=== PATIENT | male | born 1950 | race African-American/Black ===

== ENCOUNTER 2018-01-09 00:51 | Inpatient (IN) | payer MEDICARE, MEDICAID ==
[~2018-01-09] VITALS: Ht 167.6 cm; Wt 51.3 kg
[2018-01-09] VITALS (55 sets, daily range): BP systolic 95–150; BP diastolic 37–101
[2018-01-09] MEDS ORDERED: VANCOMYCIN 1 G PREMIX 200 ML IV ONE (01:30)
[2018-01-09] MEDS ORDERED: SODIUM CHLORIDE 0.9% 1000ML BAG (SEPSIS BOLUS) IV ONE (01:30)
[2018-01-09] MEDS ORDERED: PIPERACILLIN/TAZ 3.375G PREMIX 50 ML IV ONE (01:30)
[2018-01-09 02:17] LABS: BG BASE EXCESS 5.6 mmol/L (-2.0-2.0); BG CARBOXYHEMOGLOBIN 0.3 % (0.5-1.5); BG DEOXYHEMOGLOBIN 6.4 % (0.0-5.0); BG FRACTION INSPIRED OXYGEN 100; BG METHEMOGLOBIN 0.6 % (0.0-1.5); BG OXYGEN SATURATION 93.5 % (92.0-98.5); BG OXYHEMOGLOBIN 92.7 % (94.0-97.0); BG PCO2 36.2 mmHg (35.0-45.0); BG PH 7.521 (7.350-7.450); BG PO2 69.9 mmHg (75.0-100.0); BG SAMPLE SITE RIGHT RADIAL; BG TOTAL HEMOGLOBIN 5.6 g/dL (12.0-18.0); BG VENT MODE MASK - NRB
[2018-01-09 02:32] LABS: BASOPHILS % 0.2 % (0.0-2.0); EOSINOPHILS % 0.1 % (0.0-5.0); LYMPHOCYTES % 7.8 % (20.0-50.0); MEAN CORPUSCULAR HEMOGLOBIN 31.5 pg (28.0-32.0); MEAN CORPUSCULAR VOLUME 95.9 fL (80.0-94.0); MEAN PLATELET VOLUME 7.7 fl (7.4-10.4); NEUTROPHILS % 85.9 % (40.0-76.0); PLATELET 450 x1000/uL (130-400); RED BLOOD CELL COUNT 1.67 mill/uL (4.7-6.1); RED CELL DISTRIBUTION WIDTH 15.9 % (11.6-14.6)
[2018-01-09 02:35] LABS: INR 1.3; PROTHROMBIN TIME 12.8 sec (9.1-11.1)
[2018-01-09 02:36] LABS: CHLORIDE 102 mEq/L (98-107)
[2018-01-09 02:39] LABS: HEMOGLOBIN. 5.3 g/dL (14.0-18.0)
[2018-01-09 04:09] LABS: CLARITY URINE CLEAR (CLEAR); COLOR URINE DARK YELLOW (YELLOW); KETONES URINE NEGATIVE (NEGATIVE); LEUKOCYTE ESTERASE URINE 1+ (NEGATIVE); NITRITE URINE NEGATIVE (NEGATIVE); OCCULT BLOOD URINE 2+ (NEGATIVE); PROTEIN URINE 1+ (NEGATIVE); SPECIFIC GRAVITY URINE 1.016 (1.005-1.030)
[2018-01-09] MEDS ORDERED: SODIUM CHLORIDE 0.9% 1,000 ML IV SCH (05:26)
[2018-01-09] MEDS ORDERED: ETOMIDATE 2MG/ML 10ML VIAL IV ONE ×2 (06:51→07:00)
[2018-01-09] MEDS ORDERED: NORMAL SALINE 0.9% 10 ML SYR ONE (06:51)
[2018-01-09] MEDS ORDERED: SUCCINYLCHOLINE CHLORIDE 200MG/10ML IV ONE ×2 (06:51→07:00)
[2018-01-09] MEDS ORDERED: PROPOFOL 10MG/ML 100ML 100 ML IV ONE (07:00)
[2018-01-09] MEDS ORDERED: FENTANYL CITRATE/PF 500 MCG in SODIUM CHLORIDE 0.9% 40 ML IV STA (07:38)
[2018-01-09] MEDS ORDERED: NOREPINEPHRINE 4 MG in DEXT 5% WATER 246 ML IV ONE (07:45)
[2018-01-09] MEDS ORDERED: NOREPINEPHRINE 4 MG in DEXT 5% WATER 246 ML IV PRN (07:45)
[2018-01-09 08:11] LABS: BG BASE EXCESS 4.1 mmol/L (-2.0-2.0); BG CARBOXYHEMOGLOBIN 0.1 % (0.5-1.5); BG DEOXYHEMOGLOBIN 1.4 % (0.0-5.0); BG METHEMOGLOBIN 0.1 % (0.0-1.5); BG OXYGEN SATURATION 98.6 % (92.0-98.5); BG OXYHEMOGLOBIN 98.4 % (94.0-97.0); BG PCO2 38.4 mmHg (35.0-45.0); BG PH 7.481 (7.350-7.450); BG PO2 141.6 mmHg (75.0-100.0); BG SAMPLE SITE RIGHT BRACHIAL; BG TIDAL VOLUME(mL) 450 mL; BG TOTAL HEMOGLOBIN 5.8 g/dL (12.0-18.0); BG VENT MODE VENT - A/C; BG VENT RATE 14 set
[2018-01-09] MEDS: FENTANYL CITRATE/PF 500 MCG in SODIUM CHLORIDE 0.9% 40 ML IV PRN ×4 (08:15→18:55)
[2018-01-09 08:52] LABS: TOTAL IRON BINDING CAPACITY 124 ug/dL (250-450)
[2018-01-09] MEDS ORDERED: ONDANSETRON HCL 4MG/2ML INJ IV PRN (09:15)
[2018-01-09] MEDS ORDERED: DIPHENHYDRAMINE 50MG/ML VIAL IV PRN (09:15)
[2018-01-09] MEDS ORDERED: IPRATROPIUM/ALBUTEROL 0.5-3(2.5)MG/3ML NEB INH PRN (09:15)
[2018-01-09] MEDS ORDERED: LIDOCAINE HCL 1% 10 MG/ML 10ML VIAL ONE (09:29)
[2018-01-09] MEDS ORDERED: IPRATROPIUM/ALBUTEROL 0.5-3(2.5)MG/3ML NEB HHN PRN (09:45)
[2018-01-09] MEDS: SODIUM CHLORIDE 0.9% 1,000 ML IV SCH ×2 (10:45→18:54)
[2018-01-09] MEDS: PIPERACILLIN/TAZ 3.375G PREMIX 50 ML IV SCH ×3 (11:09→22:19)
[2018-01-09] MEDS: PANTOPRAZOLE SODIUM 40 MG/VIAL IV SCH (11:14)
[2018-01-09] MEDS: POTASSIUM CHLORIDE 20MEQ/PACKET PEG NR (11:16)
[2018-01-09] MEDS ORDERED: IPRATROPIUM/ALBUTEROL 0.5-3(2.5)MG/3ML NEB HHN SCH (12:00)
[2018-01-09 12:18] LABS: HEMATOCRIT 23.2 % (42.0-52.0)
[2018-01-09] MEDS: ACETYLCYSTEINE 100MG/ML 10% VIAL 4ML INH SCH (13:05)
[2018-01-09] MEDS: IPRATROPIUM/ALBUTEROL 0.5-3(2.5)MG/3ML NEB HHN SCH ×3 (13:05→21:00)
[2018-01-09] MEDS ORDERED: VANCOMYCIN 750 MG PREMIX 150 ML IV SCH (14:00)
[2018-01-10] VITALS (87 sets, daily range): BP systolic 85–134; BP diastolic 43–78
[2018-01-10] MEDS: FENTANYL CITRATE/PF 500 MCG in SODIUM CHLORIDE 0.9% 40 ML IV PRN ×4 (00:13→20:10)
[2018-01-10] MEDS: ACETYLCYSTEINE 100MG/ML 10% VIAL 4ML INH SCH ×4 (00:16→17:00)
[2018-01-10] MEDS: IPRATROPIUM/ALBUTEROL 0.5-3(2.5)MG/3ML NEB HHN SCH ×6 (00:17→20:56)
[2018-01-10] MEDS ORDERED: VANCOMYCIN 1 G PREMIX 200 ML IV SCH (02:00)
[2018-01-10] MEDS: PIPERACILLIN/TAZ 3.375G PREMIX 50 ML IV SCH ×4 (04:56→22:30)
[2018-01-10 05:14] LABS: HEMATOCRIT. 23.2 % (42.0-52.0); HEMOGLOBIN. 7.9 g/dL (14.0-18.0); MEAN CORPUSCULAR HEMOGLOBIN 30.9 pg (28.0-32.0); MEAN CORPUSCULAR VOLUME 90.7 fL (80.0-94.0); MEAN PLATELET VOLUME 7.7 fl (7.4-10.4); PLATELET 400 x1000/uL (130-400); RED BLOOD CELL COUNT 2.56 mill/uL (4.7-6.1); RED CELL DISTRIBUTION WIDTH 17.3 % (11.6-14.6)
[2018-01-10] MEDS: SODIUM CHLORIDE 0.9% 1,000 ML IV SCH ×2 (05:15→15:25)
[2018-01-10 05:16] LABS: CHLORIDE 107 mEq/L (98-107)
[2018-01-10 07:08] LABS: NUCLEATED RED BLOOD CELLS 1 /100 WBC; PLATELET ESTIMATE INCREASED
[2018-01-10 07:53] LABS: BG BASE EXCESS 1.6 mmol/L (-2.0-2.0); BG CARBOXYHEMOGLOBIN 0.2 % (0.5-1.5); BG DEOXYHEMOGLOBIN 3.3 % (0.0-5.0); BG FRACTION INSPIRED OXYGEN 50; BG HCO3 ACT 25.2 mmol/L (22.0-26.0); BG METHEMOGLOBIN 0.3 % (0.0-1.5); BG OXYGEN SATURATION 96.7 % (92.0-98.5); BG OXYHEMOGLOBIN 96.2 % (94.0-97.0); BG PCO2 34.8 mmHg (35.0-45.0); BG PH 7.477 (7.350-7.450); BG PO2 85.9 mmHg (75.0-100.0); BG SAMPLE SITE LEFT RADIAL; BG TIDAL VOLUME(mL) 450 mL; BG TOTAL HEMOGLOBIN 7.8 g/dL (12.0-18.0); BG VENT MODE VENT - A/C; BG VENT RATE 14 set
[2018-01-10] MEDS: PANTOPRAZOLE SODIUM 40 MG/VIAL IV SCH (09:22)
[2018-01-10] MEDS: POTASSIUM CHLORIDE 20MEQ/PACKET PEG NR (10:23)
[2018-01-10] MEDS: FERROUS SULFATE 300MG/5ML UDC PO SCH ×2 (13:02→17:10)
[2018-01-10] MEDS: VANCOMYCIN 750 MG PREMIX 150 ML IV SCH (13:03)
[2018-01-11] VITALS (75 sets, daily range): BP systolic 100–149; BP diastolic 46–108
[2018-01-11] MEDS: IPRATROPIUM/ALBUTEROL 0.5-3(2.5)MG/3ML NEB HHN SCH ×6 (00:51→20:37)
[2018-01-11] MEDS: SODIUM CHLORIDE 0.9% 1,000 ML IV SCH (01:28)
[2018-01-11] MEDS: VANCOMYCIN 750 MG PREMIX 150 ML IV SCH ×2 (01:28→13:43)
[2018-01-11] MEDS: PIPERACILLIN/TAZ 3.375G PREMIX 50 ML IV SCH ×3 (05:02→16:45)
[2018-01-11] MEDS: FENTANYL CITRATE/PF 500 MCG in SODIUM CHLORIDE 0.9% 40 ML IV PRN (05:03)
[2018-01-11 05:54] LABS: HEMATOCRIT. 24.8 % (42.0-52.0); HEMOGLOBIN. 8.3 g/dL (14.0-18.0); MEAN CORPUSCULAR HEMOGLOBIN 30.6 pg (28.0-32.0); MEAN CORPUSCULAR VOLUME 91.1 fL (80.0-94.0); MEAN PLATELET VOLUME 7.4 fl (7.4-10.4); PLATELET 405 x1000/uL (130-400); RED BLOOD CELL COUNT 2.72 mill/uL (4.7-6.1); RED CELL DISTRIBUTION WIDTH 17.1 % (11.6-14.6)
[2018-01-11 06:03] LABS: CHLORIDE 110 mEq/L (98-107)
[2018-01-11] MEDS: ACETYLCYSTEINE 100MG/ML 10% VIAL 4ML INH SCH ×2 (08:32→17:05)
[2018-01-11] MEDS: PANTOPRAZOLE SODIUM 40 MG/VIAL IV SCH (08:33)
[2018-01-11] MEDS: FERROUS SULFATE 300MG/5ML UDC PO SCH ×3 (08:33→16:45)
[2018-01-11 08:58] LABS: BG BASE EXCESS -0.2 mmol/L (-2.0-2.0); BG CARBOXYHEMOGLOBIN 0.1 % (0.5-1.5); BG DEOXYHEMOGLOBIN 4.4 % (0.0-5.0); BG FRACTION INSPIRED OXYGEN 50; BG HCO3 ACT 23.2 mmol/L (22.0-26.0); BG METHEMOGLOBIN 0.1 % (0.0-1.5); BG OXYGEN SATURATION 95.6 % (92.0-98.5); BG OXYHEMOGLOBIN 95.4 % (94.0-97.0); BG PCO2 32.5 mmHg (35.0-45.0); BG PH 7.471 (7.350-7.450); BG PO2 81.2 mmHg (75.0-100.0); BG SAMPLE SITE RIGHT RADIAL; BG TIDAL VOLUME(mL) 450 mL; BG TOTAL HEMOGLOBIN 8.2 g/dL (12.0-18.0); BG VENT MODE VENT - A/C; BG VENT RATE 12 set
[2018-01-11] MEDS ORDERED: POTASSIUM CHLORIDE 20MEQ/PACKET PO NR (09:45)
[2018-01-11] MEDS ORDERED: SODIUM CHLORIDE 0.9% 1,000 ML IV SCH (09:45)
[2018-01-11] MEDS ORDERED: LORAZEPAM 2MG/ML CPJ IV PRN (10:00)
[2018-01-11 15:30] LABS: PLATELET ESTIMATE SLIGHTLY INCREASED
[2018-01-12] VITALS (56 sets, daily range): BP systolic 109–166; BP diastolic 17–88
[2018-01-12] MEDS: PIPERACILLIN/TAZ 3.375G PREMIX 50 ML IV SCH ×5 (00:18→23:56)
[2018-01-12] MEDS: ACETYLCYSTEINE 100MG/ML 10% VIAL 4ML INH SCH ×3 (00:27→16:36)
[2018-01-12] MEDS: IPRATROPIUM/ALBUTEROL 0.5-3(2.5)MG/3ML NEB HHN SCH ×6 (00:27→20:38)
[2018-01-12] MEDS: VANCOMYCIN 750 MG PREMIX 150 ML IV SCH (02:22)
[2018-01-12 06:46] LABS: HEMATOCRIT 23.9 % (42.0-52.0); HEMOGLOBIN 8.1 g/dL (14.0-18.0); MEAN CORPUSCULAR HEMOGLOBIN 31.1 pg (28.0-32.0); MEAN CORPUSCULAR VOLUME 91.7 fL (80.0-94.0); PLATELET 427 x1000/uL (130-400); RED BLOOD CELL COUNT 2.61 mill/uL (4.7-6.1); RED CELL DISTRIBUTION WIDTH 16.8 % (11.6-14.6)
[2018-01-12 07:16] LABS: CHLORIDE 113 mEq/L (98-107)
[2018-01-12 08:28] LABS: BG BASE EXCESS 2.4 mmol/L (-2.0-2.0); BG CARBOXYHEMOGLOBIN 0.3 % (0.5-1.5); BG DEOXYHEMOGLOBIN 1.7 % (0.0-5.0); BG FRACTION INSPIRED OXYGEN 50; BG METHEMOGLOBIN 0.4 % (0.0-1.5); BG OXYGEN SATURATION 98.3 % (92.0-98.5); BG OXYHEMOGLOBIN 97.6 % (94.0-97.0); BG PCO2 35.6 mmHg (35.0-45.0); BG PH 7.481 (7.350-7.450); BG PO2 118.3 mmHg (75.0-100.0); BG SAMPLE SITE RIGHT RADIAL; BG TIDAL VOLUME(mL) 450 mL; BG TOTAL HEMOGLOBIN 8.2 g/dL (12.0-18.0); BG VENT MODE VENT - A/C; BG VENT RATE 12 set
[2018-01-12] MEDS: FERROUS SULFATE 300MG/5ML UDC PO SCH ×3 (09:41→19:00)
[2018-01-12] MEDS: PANTOPRAZOLE SODIUM 40 MG/VIAL IV SCH (09:41)
[2018-01-12] MEDS ORDERED: LIDOCAINE HCL/EPINEPHRINE 1%-EPI 1:100,000 30 ML VIAL INFIL ONE (09:45)
[2018-01-12] MEDS ORDERED: POTASSIUM CHLORIDE 20MEQ/PACKET GT SCH (10:15)
[2018-01-12] MEDS ORDERED: LIDOCAINE HCL/EPINEPHRINE 1%-EPI 1:100,000 20 ML VIAL IJ SCH (10:30)
[2018-01-12] MEDS ORDERED: FUROSEMIDE 40MG/4ML VIAL IVP SCH (11:15)
[2018-01-12] MEDS: AMLODIPINE 2.5MG TABLET NG SCH (11:15)
[2018-01-12] MEDS ORDERED: VANCOMYCIN 1 G PREMIX 200 ML IV SCH (21:00)
[2018-01-12] MEDS ORDERED: POTASSIUM CHLORIDE 20MEQ TABLET SR PO SCH (21:00)
[2018-01-12] MEDS: ACETAMINOPHEN 650MG/20.3ML UDC PO PRN (22:07)
[2018-01-13] VITALS (52 sets, daily range): BP systolic 104–150; BP diastolic 58–88
[2018-01-13] MEDS: ACETYLCYSTEINE 100MG/ML 10% VIAL 4ML INH SCH ×3 (00:23→16:00)
[2018-01-13] MEDS: IPRATROPIUM/ALBUTEROL 0.5-3(2.5)MG/3ML NEB HHN SCH ×6 (00:24→20:30)
[2018-01-13] MEDS: PIPERACILLIN/TAZ 3.375G PREMIX 50 ML IV SCH ×2 (04:15→10:12)
[2018-01-13 06:14] LABS: HEMOGLOBIN. 8.2 g/dL (14.0-18.0); MEAN CORPUSCULAR HEMOGLOBIN 30.6 pg (28.0-32.0); MEAN CORPUSCULAR VOLUME 92.9 fL (80.0-94.0); MEAN PLATELET VOLUME 7.8 fl (7.4-10.4); PLATELET 450 x1000/uL (130-400); RED CELL DISTRIBUTION WIDTH 16.7 % (11.6-14.6)
[2018-01-13 06:23] LABS: CHLORIDE 115 mEq/L (98-107)
[2018-01-13] MEDS: FERROUS SULFATE 300MG/5ML UDC PO SCH ×3 (08:20→18:54)
[2018-01-13 08:36] LABS: BG BASE EXCESS -0.1 mmol/L (-2.0-2.0); BG CARBOXYHEMOGLOBIN 0.5 % (0.5-1.5); BG DEOXYHEMOGLOBIN 2.4 % (0.0-5.0); BG HCO3 ACT 22.9 mmol/L (22.0-26.0); BG METHEMOGLOBIN 0.3 % (0.0-1.5); BG OXYGEN SATURATION 97.6 % (92.0-98.5); BG OXYHEMOGLOBIN 96.8 % (94.0-97.0); BG PCO2 30.8 mmHg (35.0-45.0); BG PH 7.489 (7.350-7.450); BG PO2 99.6 mmHg (75.0-100.0); BG SAMPLE SITE RIGHT RADIAL; BG TIDAL VOLUME(mL) 450 mL; BG TOTAL HEMOGLOBIN 8.3 g/dL (12.0-18.0); BG VENT MODE VENT - A/C; BG VENT RATE 10 set
[2018-01-13] MEDS: PANTOPRAZOLE SODIUM 40 MG/VIAL IV SCH (09:00)
[2018-01-13] MEDS: AMLODIPINE 2.5MG TABLET NG SCH (10:12)
[2018-01-13] MEDS: GENTAMICIN 120MG PREMIX 100 ML IV SCH (12:00)
[2018-01-13] MEDS ORDERED: POTASSIUM CHLORIDE 20MEQ/PACKET GT NR (13:15)
[2018-01-13 16:19] LABS: PLATELET ESTIMATE INCREASED
[2018-01-14] VITALS (28 sets, daily range): BP systolic 109–169; BP diastolic 62–93
[2018-01-14] MEDS: GENTAMICIN 120MG PREMIX 100 ML IV SCH ×3 (00:39→23:59)
[2018-01-14] MEDS: IPRATROPIUM/ALBUTEROL 0.5-3(2.5)MG/3ML NEB HHN SCH ×5 (00:53→20:30)
[2018-01-14] MEDS: ACETYLCYSTEINE 100MG/ML 10% VIAL 4ML INH SCH ×2 (00:53→07:53)
[2018-01-14] MEDS: FERROUS SULFATE 300MG/5ML UDC PO SCH ×2 (08:20→13:20)
[2018-01-14] MEDS: PANTOPRAZOLE SODIUM 40 MG/VIAL IV SCH (09:00)
[2018-01-14] MEDS: AMLODIPINE 2.5MG TABLET NG SCH (09:13)
[2018-01-14 09:17] LABS: BG BASE EXCESS -0.3 mmol/L (-2.0-2.0); BG CARBOXYHEMOGLOBIN 0.4 % (0.5-1.5); BG DEOXYHEMOGLOBIN 2.5 % (0.0-5.0); BG FRACTION INSPIRED OXYGEN 40; BG HCO3 ACT 23.2 mmol/L (22.0-26.0); BG METHEMOGLOBIN 0.1 % (0.0-1.5); BG OXYGEN SATURATION 97.5 % (92.0-98.5); BG PCO2 33.2 mmHg (35.0-45.0); BG PH 7.463 (7.350-7.450); BG PO2 98.4 mmHg (75.0-100.0); BG SAMPLE SITE RIGHT RADIAL; BG TIDAL VOLUME(mL) 450 mL; BG TOTAL HEMOGLOBIN 8.2 g/dL (12.0-18.0); BG VENT MODE VENT - A/C; BG VENT RATE 10 set
[2018-01-15] VITALS (24 sets, daily range): BP systolic 124–174; BP diastolic 62–135
[2018-01-15] MEDS: ACETYLCYSTEINE 100MG/ML 10% VIAL 4ML INH SCH (00:31)
[2018-01-15] MEDS: IPRATROPIUM/ALBUTEROL 0.5-3(2.5)MG/3ML NEB HHN SCH ×6 (00:32→20:38)
[2018-01-15 06:26] LABS: HEMATOCRIT. 25.5 % (42.0-52.0); HEMOGLOBIN. 8.3 g/dL (14.0-18.0); INR 1.2; MEAN CORPUSCULAR HEMOGLOBIN 30.5 pg (28.0-32.0); MEAN CORPUSCULAR VOLUME 93.7 fL (80.0-94.0); MEAN PLATELET VOLUME 8.2 fl (7.4-10.4); PLATELET 511 x1000/uL (130-400); PROTHROMBIN TIME 11.6 sec (9.1-11.1); RED BLOOD CELL COUNT 2.72 mill/uL (4.7-6.1)
[2018-01-15 06:55] LABS: CHLORIDE 121 mEq/L (98-107)
[2018-01-15 08:02] LABS: BG CARBOXYHEMOGLOBIN 0.1 % (0.5-1.5); BG DEOXYHEMOGLOBIN 2.1 % (0.0-5.0); BG HCO3 ACT 23.2 mmol/L (22.0-26.0); BG METHEMOGLOBIN 0.4 % (0.0-1.5); BG OXYGEN SATURATION 97.9 % (92.0-98.5); BG OXYHEMOGLOBIN 97.4 % (94.0-97.0); BG PCO2 31.7 mmHg (35.0-45.0); BG PH 7.482 (7.350-7.450); BG PO2 105.8 mmHg (75.0-100.0); BG SAMPLE SITE RIGHT RADIAL; BG TIDAL VOLUME(mL) 450 mL; BG TOTAL HEMOGLOBIN 8.5 g/dL (12.0-18.0); BG VENT MODE VENT - A/C; BG VENT RATE 10 set
[2018-01-15] MEDS: FERROUS SULFATE 300MG/5ML UDC PO SCH ×3 (08:17→18:28)
[2018-01-15] MEDS: PANTOPRAZOLE SODIUM 40 MG/VIAL IV SCH (08:17)
[2018-01-15] MEDS: ACETAMINOPHEN 650MG/20.3ML UDC PO PRN (08:18)
[2018-01-15] MEDS: AMLODIPINE 2.5MG TABLET NG SCH (08:20)
[2018-01-15] MEDS: MORPHINE SULFATE 4 MG/ML CPJ (NOT FOR IM USE) IV PRN ×2 (10:00→15:31)
[2018-01-15] MEDS ORDERED: FERR325T6 GT (13:31)
[2018-01-15] MEDS ORDERED: HYDR25TA GT (13:31)
[2018-01-15] MEDS ORDERED: LOSA25TA12 GT (13:31)
[2018-01-15] MEDS ORDERED: AMLO10TA80 GT (13:31)
[2018-01-15] MEDS ORDERED: ASPI-1158 GT (13:31)
[2018-01-15] MEDS ORDERED: TAMS0.4C31 GT (13:31)
[2018-01-15] MEDS ORDERED: FINA1TAB18 GT (13:31)
[2018-01-15] MEDS ORDERED: ERGO2000 GT (13:31)
[2018-01-15] MEDS ORDERED: DOCU50LI25 GT (13:32)
[2018-01-15 14:04] LABS: PLATELET ESTIMATE INCREASED
[2018-01-16] VITALS (41 sets, daily range): BP systolic 114–158; BP diastolic 60–138
[2018-01-16] MEDS ORDERED: GENTAMICIN SULFATE 160 MG in SODIUM CHLORIDE 0.9% 100 ML IV SCH ×2
[2018-01-16] MEDS: IPRATROPIUM/ALBUTEROL 0.5-3(2.5)MG/3ML NEB HHN SCH ×6 (00:10→20:34)
[2018-01-16] MEDS: GENTAMICIN SULFATE 160 MG in SODIUM CHLORIDE 0.9% 100 ML IV SCH (00:12)
[2018-01-16 05:47] LABS: HEMATOCRIT. 27.2 % (42.0-52.0); HEMOGLOBIN. 8.6 g/dL (14.0-18.0); MEAN CORPUSCULAR HEMOGLOBIN 29.9 pg (28.0-32.0); MEAN PLATELET VOLUME 8.4 fl (7.4-10.4); PLATELET 506 x1000/uL (130-400); RED BLOOD CELL COUNT 2.89 mill/uL (4.7-6.1); RED CELL DISTRIBUTION WIDTH 16.7 % (11.6-14.6)
[2018-01-16] MEDS: MORPHINE SULFATE 4 MG/ML CPJ (NOT FOR IM USE) IV PRN ×3 (06:09→18:25)
[2018-01-16 06:31] LABS: CHLORIDE 121 mEq/L (98-107)
[2018-01-16 06:37] LABS: PHOSPHORUS 3.5 mg/dL (2.5-4.9)
[2018-01-16] MEDS: FERROUS SULFATE 300MG/5ML UDC PO SCH ×3 (08:39→17:28)
[2018-01-16] MEDS: AMLODIPINE 2.5MG TABLET NG SCH (08:39)
[2018-01-16] MEDS: PANTOPRAZOLE SODIUM 40 MG/VIAL IV SCH (08:39)
[2018-01-16 09:14] LABS: BG BASE EXCESS 0.2 mmol/L (-2.0-2.0); BG CARBOXYHEMOGLOBIN 0.1 % (0.5-1.5); BG DEOXYHEMOGLOBIN 0.9 % (0.0-5.0); BG FRACTION INSPIRED OXYGEN 40; BG HCO3 ACT 23.7 mmol/L (22.0-26.0); BG METHEMOGLOBIN 0.3 % (0.0-1.5); BG OXYGEN SATURATION 99.1 % (92.0-98.5); BG OXYHEMOGLOBIN 98.7 % (94.0-97.0); BG PCO2 33.6 mmHg (35.0-45.0); BG PH 7.466 (7.350-7.450); BG PO2 175.9 mmHg (75.0-100.0); BG PRESSURE SUPPORT 12; BG SAMPLE SITE RIGHT RADIAL; BG TIDAL VOLUME(mL) 450 mL; BG VENT MODE VENT - SIMV; BG VENT RATE 8 set
[2018-01-16 12:25] LABS: BG BASE EXCESS 0.1 mmol/L (-2.0-2.0); BG CARBOXYHEMOGLOBIN 0.3 % (0.5-1.5); BG DEOXYHEMOGLOBIN 5.7 % (0.0-5.0); BG FRACTION INSPIRED OXYGEN 40; BG HCO3 ACT 24.1 mmol/L (22.0-26.0); BG METHEMOGLOBIN 0.2 % (0.0-1.5); BG OXYGEN SATURATION 94.3 % (92.0-98.5); BG OXYHEMOGLOBIN 93.8 % (94.0-97.0); BG PCO2 36.6 mmHg (35.0-45.0); BG PH 7.436 (7.350-7.450); BG PRESSURE SUPPORT 8; BG SAMPLE SITE LEFT RADIAL; BG TOTAL HEMOGLOBIN 10.9 g/dL (12.0-18.0); BG VENT MODE VENT - CPAP
[2018-01-16] MEDS ORDERED: DILTIAZEM HCL 125 MG in DEXT 5% WATER 100 ML IV PRN (13:30)
[2018-01-16] MEDS ORDERED: DILTIAZEM HCL 5MG/ML 5ML VIAL IV ONE (13:30)
[2018-01-16 13:57] LABS: PLATELET ESTIMATE INCREASED
[2018-01-16] MEDS: DILTIAZEM HCL 60MG TABLET PO SCH ×2 (14:07→22:00)
[2018-01-16] MEDS ORDERED: VERAPAMIL HCL 2.5 MG/1 ML 2ML VIAL IV SCH ×2 (16:00→18:00)
[2018-01-16] MEDS ORDERED: AMIODARONE HCL 150 MG in DEXT 5% WATER 100 ML IV NR (18:30)
[2018-01-16] MEDS ORDERED: AMIODARONE HCL 900 MG in DEXT 5% WATER 482 ML IV PRN (18:30)
[2018-01-16] MEDS: CARVEDILOL 6.25 MG TABLET GT SCH (21:05)
[2018-01-17] VITALS (46 sets, daily range): BP systolic 121–183; BP diastolic 57–92
[2018-01-17] MEDS: IPRATROPIUM/ALBUTEROL 0.5-3(2.5)MG/3ML NEB HHN SCH ×6 (00:35→20:00)
[2018-01-17] MEDS: GENTAMICIN SULFATE 160 MG in SODIUM CHLORIDE 0.9% 100 ML IV SCH (05:47)
[2018-01-17 06:42] LABS: HEMATOCRIT. 29.4 % (42.0-52.0); HEMOGLOBIN. 9.5 g/dL (14.0-18.0); MEAN CORPUSCULAR HEMOGLOBIN 30.2 pg (28.0-32.0); MEAN CORPUSCULAR VOLUME 93.2 fL (80.0-94.0); MEAN PLATELET VOLUME 8.7 fl (7.4-10.4); PLATELET 621 x1000/uL (130-400); RED BLOOD CELL COUNT 3.16 mill/uL (4.7-6.1)
[2018-01-17] MEDS: DILTIAZEM HCL 60MG TABLET PO SCH ×3 (06:43→21:57)
[2018-01-17 07:09] LABS: CHLORIDE 119 mEq/L (98-107)
[2018-01-17 07:17] LABS: PHOSPHORUS 3.3 mg/dL (2.5-4.9)
[2018-01-17 07:35] LABS: BG BASE EXCESS -1.1 mmol/L (-2.0-2.0); BG CARBOXYHEMOGLOBIN 0.3 % (0.5-1.5); BG DEOXYHEMOGLOBIN 21.4 % (0.0-5.0); BG HCO3 ACT 21.6 mmol/L (22.0-26.0); BG METHEMOGLOBIN 0.2 % (0.0-1.5); BG OXYGEN SATURATION 78.5 % (92.0-98.5); BG OXYHEMOGLOBIN 78.1 % (94.0-97.0); BG PCO2 29.6 mmHg (35.0-45.0); BG PH 7.482 (7.350-7.450); BG PO2 42.1 mmHg (75.0-100.0); BG SAMPLE SITE RIGHT RADIAL; BG TOTAL HEMOGLOBIN 10.3 g/dL (12.0-18.0); BG VENT MODE MASK - AEROSOL
[2018-01-17] MEDS: CARVEDILOL 6.25 MG TABLET GT SCH ×2 (09:00→20:58)
[2018-01-17] MEDS: FERROUS SULFATE 300MG/5ML UDC PO SCH ×3 (09:13→17:45)
[2018-01-17] MEDS: PANTOPRAZOLE SODIUM 40 MG/VIAL IV SCH (09:13)
[2018-01-17] MEDS ORDERED: ALBUTEROL (0.5%) 2.5MG/0.5ML NEB HHN PRN (09:45)
[2018-01-17] MEDS: DEXTROSE 5% WATER 1,000 ML IV SCH (10:45)
[2018-01-17 11:01] LABS: BG BASE EXCESS -0.3 mmol/L (-2.0-2.0); BG BILEVEL POS AIRWAY PRESSURE 15/5; BG CARBOXYHEMOGLOBIN 0.3 % (0.5-1.5); BG DEOXYHEMOGLOBIN 7.9 % (0.0-5.0); BG HCO3 ACT 22.7 mmol/L (22.0-26.0); BG METHEMOGLOBIN 0.3 % (0.0-1.5); BG OXYGEN SATURATION 92.1 % (92.0-98.5); BG OXYHEMOGLOBIN 91.5 % (94.0-97.0); BG PCO2 31.5 mmHg (35.0-45.0); BG PH 7.476 (7.350-7.450); BG PO2 62.5 mmHg (75.0-100.0); BG SAMPLE SITE RIGHT RADIAL; BG TOTAL HEMOGLOBIN 10.1 g/dL (12.0-18.0); BG VENT MODE MASK - BIPAP; BG VENT RATE 16 set
[2018-01-17] MEDS: HYDRALAZINE HCL 25MG TABLET PO SCH ×2 (13:26→21:58)
[2018-01-17 13:29] LABS: PLATELET ESTIMATE INCREASED
[2018-01-17] MEDS: ACETYLCYSTEINE 100MG/ML 10% VIAL 4ML INH SCH (16:29)
[2018-01-18] VITALS (48 sets, daily range): BP systolic 86–177; BP diastolic 41–81
[2018-01-18] MEDS: IPRATROPIUM/ALBUTEROL 0.5-3(2.5)MG/3ML NEB HHN SCH ×3 (01:07→20:44)
[2018-01-18] MEDS: ACETYLCYSTEINE 100MG/ML 10% VIAL 4ML INH SCH ×3 (01:07→15:12)
[2018-01-18 02:41] LABS: BG BASE EXCESS -3.3 mmol/L (-2.0-2.0); BG BILEVEL POS AIRWAY PRESSURE 15/5; BG CARBOXYHEMOGLOBIN 0.3 % (0.5-1.5); BG DEOXYHEMOGLOBIN 25.6 % (0.0-5.0); BG FRACTION INSPIRED OXYGEN 100; BG HCO3 ACT 20.4 mmol/L (22.0-26.0); BG METHEMOGLOBIN 0.3 % (0.0-1.5); BG OXYGEN SATURATION 74.2 % (92.0-98.5); BG OXYHEMOGLOBIN 73.8 % (94.0-97.0); BG PCO2 32.1 mmHg (35.0-45.0); BG PH 7.422 (7.350-7.450); BG PO2 41.6 mmHg (75.0-100.0); BG SAMPLE SITE RIGHT RADIAL; BG TOTAL HEMOGLOBIN 10.7 g/dL (12.0-18.0); BG VENT MODE MASK - BIPAP
[2018-01-18] MEDS: PROPOFOL 10MG/ML 100ML 100 ML IV PRN ×3 (03:30→21:40)
[2018-01-18] MEDS: HYDRALAZINE HCL 25MG TABLET PO SCH ×3 (05:05→22:00)
[2018-01-18] MEDS: DILTIAZEM HCL 60MG TABLET PO SCH ×3 (05:05→22:00)
[2018-01-18] MEDS: DEXTROSE 5% WATER 1,000 ML IV SCH (05:59)
[2018-01-18 06:00] LABS: HEMATOCRIT. 26.7 % (42.0-52.0); HEMOGLOBIN. 8.4 g/dL (14.0-18.0); MEAN CORPUSCULAR HEMOGLOBIN 29.9 pg (28.0-32.0); MEAN CORPUSCULAR VOLUME 94.6 fL (80.0-94.0); MEAN PLATELET VOLUME 8.7 fl (7.4-10.4); PLATELET 550 x1000/uL (130-400); RED BLOOD CELL COUNT 2.82 mill/uL (4.7-6.1); RED CELL DISTRIBUTION WIDTH 16.9 % (11.6-14.6)
[2018-01-18 06:03] LABS: BG CARBOXYHEMOGLOBIN 0.3 % (0.5-1.5); BG DEOXYHEMOGLOBIN 3.4 % (0.0-5.0); BG FRACTION INSPIRED OXYGEN 100; BG HCO3 ACT 22.6 mmol/L (22.0-26.0); BG METHEMOGLOBIN 0.2 % (0.0-1.5); BG OXYGEN SATURATION 96.6 % (92.0-98.5); BG OXYHEMOGLOBIN 96.1 % (94.0-97.0); BG PCO2 37.5 mmHg (35.0-45.0); BG PEEP (cmH2O) 0 cmH2O; BG PH 7.397 (7.350-7.450); BG PO2 93.7 mmHg (75.0-100.0); BG SAMPLE SITE LEFT BRACHIAL; BG TIDAL VOLUME(mL) 450 mL; BG TOTAL HEMOGLOBIN 10.4 g/dL (12.0-18.0); BG VENT MODE VENT - A/C; BG VENT RATE 14 set
[2018-01-18 06:51] LABS: CHLORIDE 117 mEq/L (98-107)
[2018-01-18 06:57] LABS: PHOSPHORUS 3.8 mg/dL (2.5-4.9)
[2018-01-18 07:23] LABS: PLATELET ESTIMATE INCREASED
[2018-01-18] MEDS: ALBUTEROL (0.083%) 2.5MG/3ML NEB HHN SCH ×3 (07:24→15:12)
[2018-01-18 08:28] LABS: BG BASE EXCESS -1.8 mmol/L (-2.0-2.0); BG CARBOXYHEMOGLOBIN 0.3 % (0.5-1.5); BG DEOXYHEMOGLOBIN 1.3 % (0.0-5.0); BG FRACTION INSPIRED OXYGEN 100; BG HCO3 ACT 21.5 mmol/L (22.0-26.0); BG OXYGEN SATURATION 98.7 % (92.0-98.5); BG OXYHEMOGLOBIN 98.4 % (94.0-97.0); BG PCO2 30.9 mmHg (35.0-45.0); BG PH 7.461 (7.350-7.450); BG PO2 133.6 mmHg (75.0-100.0); BG SAMPLE SITE LEFT RADIAL; BG TIDAL VOLUME(mL) 450 mL; BG TOTAL HEMOGLOBIN 8.5 g/dL (12.0-18.0); BG VENT MODE VENT - A/C; BG VENT RATE 14 set
[2018-01-18] MEDS: PANTOPRAZOLE SODIUM 40 MG/VIAL IV SCH (09:00)
[2018-01-18] MEDS: FERROUS SULFATE 300MG/5ML UDC PO SCH ×3 (09:00→18:21)
[2018-01-18] MEDS: AMIODARONE HCL 200 MG TABLET PO SCH ×2 (09:01→18:21)
[2018-01-18] MEDS: CARVEDILOL 6.25 MG TABLET GT SCH ×2 (09:01→21:00)
[2018-01-18] MEDS ORDERED: SODIUM BICARBONATE 4% (2.4MEQ) 5ML VIAL IV ONE (10:48)
[2018-01-18] MEDS ORDERED: LIDOCAINE HCL 1% 10 MG/ML 10ML VIAL ONE (10:48)
[2018-01-18] MEDS: GENTAMICIN SULFATE 160 MG in SODIUM CHLORIDE 0.9% 100 ML IV SCH (12:11)
[2018-01-18] MEDS ORDERED: SODIUM CHLORIDE 0.9% 10ML VIAL ONE (14:59)
[2018-01-18] MEDS ORDERED: ETOMIDATE 2MG/ML 10ML VIAL IV ONE (14:59)
[2018-01-18] MEDS ORDERED: SUCCINYLCHOLINE CHLORIDE 200MG/10ML IV ONE (14:59)
[2018-01-19] VITALS (36 sets, daily range): BP systolic 124–152; BP diastolic 53–74
[2018-01-19] MEDS: ALBUTEROL (0.083%) 2.5MG/3ML NEB HHN SCH ×4 (00:07→20:15)
[2018-01-19] MEDS: ACETYLCYSTEINE 100MG/ML 10% VIAL 4ML INH SCH ×3 (00:17→16:33)
[2018-01-19] MEDS: IPRATROPIUM/ALBUTEROL 0.5-3(2.5)MG/3ML NEB HHN SCH ×5 (00:18→23:53)
[2018-01-19] MEDS: DEXTROSE 5% WATER 1,000 ML IV SCH ×2 (03:00→21:45)
[2018-01-19] MEDS: HYDRALAZINE HCL 25MG TABLET PO SCH ×3 (05:57→21:42)
[2018-01-19] MEDS: DILTIAZEM HCL 60MG TABLET PO SCH (05:57)
[2018-01-19] MEDS: CARVEDILOL 6.25 MG TABLET GT SCH (09:51)
[2018-01-19] MEDS: FERROUS SULFATE 300MG/5ML UDC PO SCH ×3 (09:51→18:07)
[2018-01-19] MEDS: AMIODARONE HCL 200 MG TABLET PO SCH ×2 (09:51→17:00)
[2018-01-19] MEDS: PANTOPRAZOLE SODIUM 40 MG/VIAL IV SCH (09:51)
[2018-01-19] MEDS ORDERED: LORAZEPAM 2MG/ML CPJ IV PRN (11:00)
[2018-01-19 12:05] LABS: BG BASE EXCESS -2.5 mmol/L (-2.0-2.0); BG CARBOXYHEMOGLOBIN 0.3 % (0.5-1.5); BG DEOXYHEMOGLOBIN 4.2 % (0.0-5.0); BG FRACTION INSPIRED OXYGEN 80; BG HCO3 ACT 21.2 mmol/L (22.0-26.0); BG METHEMOGLOBIN 0.2 % (0.0-1.5); BG OXYGEN SATURATION 95.8 % (92.0-98.5); BG OXYHEMOGLOBIN 95.3 % (94.0-97.0); BG PCO2 31.8 mmHg (35.0-45.0); BG PH 7.441 (7.350-7.450); BG PO2 77.9 mmHg (75.0-100.0); BG SAMPLE SITE RIGHT RADIAL; BG TIDAL VOLUME(mL) 450 mL; BG TOTAL HEMOGLOBIN 8.5 g/dL (12.0-18.0); BG VENT MODE VENT - A/C; BG VENT RATE 12 set
[2018-01-19] MEDS: DILTIAZEM HCL 30MG TABLET PO SCH ×2 (14:00→22:31)
[2018-01-19] MEDS: GENTAMICIN SULFATE 160 MG in SODIUM CHLORIDE 0.9% 100 ML IV SCH (20:25)
[2018-01-19] MEDS: NEOMY SULF/BACITRAC ZN/POLY OINT 28GM TOP SCH (20:25)
[2018-01-19] MEDS: CARVEDILOL 3.125 MG TABLET GT SCH (21:43)
[2018-01-19] MEDS: ACETAMINOPHEN 650MG/20.3ML UDC PO PRN (22:14)
[2018-01-20] VITALS (32 sets, daily range): BP systolic 98–160; BP diastolic 52–91
[2018-01-20] MEDS: IPRATROPIUM/ALBUTEROL 0.5-3(2.5)MG/3ML NEB HHN SCH ×3 (04:44→20:36)
[2018-01-20] MEDS: HYDRALAZINE HCL 25MG TABLET PO SCH ×3 (05:19→22:29)
[2018-01-20] MEDS: DILTIAZEM HCL 30MG TABLET PO SCH ×3 (05:20→22:29)
[2018-01-20 06:09] LABS: HEMATOCRIT. 24.4 % (42.0-52.0); MEAN CORPUSCULAR HEMOGLOBIN 30.5 pg (28.0-32.0); MEAN CORPUSCULAR VOLUME 93.1 fL (80.0-94.0); MEAN PLATELET VOLUME 9.4 fl (7.4-10.4); PLATELET 500 x1000/uL (130-400); RED BLOOD CELL COUNT 2.62 mill/uL (4.7-6.1); RED CELL DISTRIBUTION WIDTH 16.9 % (11.6-14.6)
[2018-01-20 06:39] LABS: CHLORIDE 110 mEq/L (98-107)
[2018-01-20 06:52] LABS: PHOSPHORUS 2.7 mg/dL (2.5-4.9)
[2018-01-20 06:53] LABS: GENTAMICIN RANDOM 4.5 ug/mL
[2018-01-20 07:48] LABS: BG BASE EXCESS -0.4 mmol/L (-2.0-2.0); BG CARBOXYHEMOGLOBIN 0.6 % (0.5-1.5); BG DEOXYHEMOGLOBIN 4.2 % (0.0-5.0); BG HCO3 ACT 22.6 mmol/L (22.0-26.0); BG METHEMOGLOBIN 0.4 % (0.0-1.5); BG OXYGEN SATURATION 95.8 % (92.0-98.5); BG OXYHEMOGLOBIN 94.8 % (94.0-97.0); BG PH 7.494 (7.350-7.450); BG PO2 89.9 mmHg (75.0-100.0); BG SAMPLE SITE RIGHT RADIAL; BG TIDAL VOLUME(mL) 450 mL; BG TOTAL HEMOGLOBIN 8.3 g/dL (12.0-18.0); BG VENT MODE VENT - A/C; BG VENT RATE 12 set
[2018-01-20] MEDS: ACETYLCYSTEINE 100MG/ML 10% VIAL 4ML INH SCH ×3 (08:39→16:26)
[2018-01-20] MEDS: ALBUTEROL (0.083%) 2.5MG/3ML NEB HHN SCH ×2 (08:40→12:54)
[2018-01-20] MEDS: PANTOPRAZOLE SODIUM 40 MG/VIAL IV SCH (09:29)
[2018-01-20] MEDS: FERROUS SULFATE 300MG/5ML UDC PO SCH ×3 (09:29→18:01)
[2018-01-20] MEDS: AMIODARONE HCL 200 MG TABLET PO SCH (09:29)
[2018-01-20] MEDS: CARVEDILOL 3.125 MG TABLET GT SCH ×2 (09:30→21:28)
[2018-01-20] MEDS: NEOMY SULF/BACITRAC ZN/POLY OINT 28GM TOP SCH (09:31)
[2018-01-20] MEDS ORDERED: MORPHINE SULFATE 4 MG/ML CPJ (NOT FOR IM USE) IV PRN (11:00)
[2018-01-20 12:38] LABS: PLATELET ESTIMATE INCREASED
[2018-01-20 12:41] LABS: BG BASE EXCESS -3.2 mmol/L (-2.0-2.0); BG CARBOXYHEMOGLOBIN 0.3 % (0.5-1.5); BG DEOXYHEMOGLOBIN 5.4 % (0.0-5.0); BG FRACTION INSPIRED OXYGEN 40; BG HCO3 ACT 19.7 mmol/L (22.0-26.0); BG METHEMOGLOBIN 0.3 % (0.0-1.5); BG OXYGEN SATURATION 94.6 % (92.0-98.5); BG PCO2 27.8 mmHg (35.0-45.0); BG PH 7.469 (7.350-7.450); BG PO2 70.3 mmHg (75.0-100.0); BG SAMPLE SITE RIGHT RADIAL; BG TIDAL VOLUME(mL) 450 mL; BG TOTAL HEMOGLOBIN 8.6 g/dL (12.0-18.0); BG VENT MODE VENT - A/C; BG VENT RATE 12 set
[2018-01-20] MEDS: CEFEPIME 1,000 MG in DEXTROSE 5% WATER 50 ML IV SCH ×2 (18:01→23:36)
[2018-01-20] MEDS ORDERED: GENTAMICIN SULFATE 200 MG in SODIUM CHLORIDE 0.9% 100 ML IV SCH (21:00)
[2018-01-21] VITALS (29 sets, daily range): BP systolic 107–149; BP diastolic 47–104
[2018-01-21] MEDS: IPRATROPIUM/ALBUTEROL 0.5-3(2.5)MG/3ML NEB HHN SCH ×6 (00:28→20:36)
[2018-01-21] MEDS: ACETYLCYSTEINE 100MG/ML 10% VIAL 4ML INH SCH ×3 (00:28→18:24)
[2018-01-21] MEDS: CEFEPIME 1,000 MG in DEXTROSE 5% WATER 50 ML IV SCH ×3 (06:12→22:00)
[2018-01-21 06:13] LABS: INR 1.1; PROTHROMBIN TIME 10.7 sec (9.1-11.1)
[2018-01-21] MEDS: HYDRALAZINE HCL 25MG TABLET PO SCH ×3 (06:13→23:14)
[2018-01-21] MEDS: DILTIAZEM HCL 30MG TABLET PO SCH ×3 (06:13→23:13)
[2018-01-21 06:21] LABS: CHLORIDE 108 mEq/L (98-107)
[2018-01-21 06:23] LABS: HEMATOCRIT. 26.6 % (42.0-52.0); HEMOGLOBIN. 8.7 g/dL (14.0-18.0); MEAN CORPUSCULAR HEMOGLOBIN 30.4 pg (28.0-32.0); MEAN CORPUSCULAR VOLUME 92.5 fL (80.0-94.0); MEAN PLATELET VOLUME 9.6 fl (7.4-10.4); PLATELET 631 x1000/uL (130-400); RED BLOOD CELL COUNT 2.88 mill/uL (4.7-6.1); RED CELL DISTRIBUTION WIDTH 16.4 % (11.6-14.6)
[2018-01-21 06:28] LABS: PHOSPHORUS 3.2 mg/dL (2.5-4.9)
[2018-01-21 07:39] LABS: BG BASE EXCESS -3.7 mmol/L (-2.0-2.0); BG CARBOXYHEMOGLOBIN 0.3 % (0.5-1.5); BG DEOXYHEMOGLOBIN 2.7 % (0.0-5.0); BG HCO3 ACT 18.7 mmol/L (22.0-26.0); BG METHEMOGLOBIN 0.2 % (0.0-1.5); BG OXYGEN SATURATION 97.3 % (92.0-98.5); BG OXYHEMOGLOBIN 96.8 % (94.0-97.0); BG PCO2 25.2 mmHg (35.0-45.0); BG PH 7.489 (7.350-7.450); BG PO2 93.1 mmHg (75.0-100.0); BG SAMPLE SITE RIGHT RADIAL; BG TIDAL VOLUME(mL) 450 mL; BG TOTAL HEMOGLOBIN 8.9 g/dL (12.0-18.0); BG VENT MODE VENT - A/C; BG VENT RATE 12 set
[2018-01-21] MEDS ORDERED: FUROSEMIDE 20MG/2ML VIAL IVP NR (07:45)
[2018-01-21] MEDS ORDERED: SODIUM BICARBONATE 4% (2.4MEQ) 5ML VIAL IV ONE (08:34)
[2018-01-21 08:42] LABS: PLATELET ESTIMATE MARKEDLY INCREASED
[2018-01-21] MEDS: CARVEDILOL 3.125 MG TABLET GT SCH ×2 (09:39→21:28)
[2018-01-21] MEDS: PANTOPRAZOLE SODIUM 40 MG/VIAL IV SCH (09:40)
[2018-01-21] MEDS: AMIODARONE HCL 200 MG TABLET PO SCH (09:40)
[2018-01-21] MEDS: FERROUS SULFATE 300MG/5ML UDC PO SCH ×3 (09:43→17:30)
[2018-01-21] MEDS: NEOMY SULF/BACITRAC ZN/POLY OINT 28GM TOP SCH (17:31)
[2018-01-22] VITALS (26 sets, daily range): BP systolic 109–168; BP diastolic 52–93
[2018-01-22] MEDS: ACETYLCYSTEINE 100MG/ML 10% VIAL 4ML INH SCH ×2 (00:25→08:52)
[2018-01-22] MEDS: IPRATROPIUM/ALBUTEROL 0.5-3(2.5)MG/3ML NEB HHN SCH ×6 (00:26→23:58)
[2018-01-22 05:38] LABS: HEMATOCRIT. 23.4 % (42.0-52.0); HEMOGLOBIN. 7.8 g/dL (14.0-18.0); MEAN CORPUSCULAR HEMOGLOBIN 30.7 pg (28.0-32.0); MEAN CORPUSCULAR VOLUME 91.7 fL (80.0-94.0); MEAN PLATELET VOLUME 9.2 fl (7.4-10.4); PLATELET 573 x1000/uL (130-400); RED BLOOD CELL COUNT 2.55 mill/uL (4.7-6.1); RED CELL DISTRIBUTION WIDTH 16.6 % (11.6-14.6)
[2018-01-22 05:51] LABS: CHLORIDE 108 mEq/L (98-107)
[2018-01-22 05:56] LABS: PHOSPHORUS 3.3 mg/dL (2.5-4.9)
[2018-01-22] MEDS: DILTIAZEM HCL 30MG TABLET PO SCH ×3 (06:00→22:00)
[2018-01-22] MEDS: HYDRALAZINE HCL 25MG TABLET PO SCH ×3 (06:00→22:33)
[2018-01-22] MEDS: CEFEPIME 1,000 MG in DEXTROSE 5% WATER 50 ML IV SCH ×3 (06:04→22:33)
[2018-01-22 07:27] LABS: ATYPICAL LYMPHOCYTES 1; PLATELET ESTIMATE MARKEDLY INCREASED
[2018-01-22 08:41] LABS: BG BASE EXCESS -2.9 mmol/L (-2.0-2.0); BG CARBOXYHEMOGLOBIN 0.2 % (0.5-1.5); BG DEOXYHEMOGLOBIN 1.5 % (0.0-5.0); BG FRACTION INSPIRED OXYGEN 40; BG METHEMOGLOBIN 0.4 % (0.0-1.5); BG OXYGEN SATURATION 98.5 % (92.0-98.5); BG OXYHEMOGLOBIN 97.9 % (94.0-97.0); BG PCO2 33.1 mmHg (35.0-45.0); BG PH 7.421 (7.350-7.450); BG PO2 121.2 mmHg (75.0-100.0); BG SAMPLE SITE RIGHT RADIAL; BG TIDAL VOLUME(mL) 450 mL; BG TOTAL HEMOGLOBIN 8.8 g/dL (12.0-18.0); BG VENT MODE VENT - A/C; BG VENT RATE 12 set
[2018-01-22] MEDS: ALBUTEROL (0.083%) 2.5MG/3ML NEB HHN SCH (08:52)
[2018-01-22] MEDS: CARVEDILOL 3.125 MG TABLET GT SCH ×2 (08:56→20:50)
[2018-01-22] MEDS: PANTOPRAZOLE SODIUM 40 MG/VIAL IV SCH (08:56)
[2018-01-22] MEDS: FERROUS SULFATE 300MG/5ML UDC PO SCH ×3 (08:56→17:35)
[2018-01-22] MEDS: AMIODARONE HCL 200 MG TABLET PO SCH (08:57)
[2018-01-22] MEDS: NEOMY SULF/BACITRAC ZN/POLY OINT 28GM TOP SCH (17:30)
[2018-01-23] VITALS (24 sets, daily range): BP systolic 117–156; BP diastolic 55–99
[2018-01-23] MEDS: IPRATROPIUM/ALBUTEROL 0.5-3(2.5)MG/3ML NEB HHN SCH ×4 (04:13→16:32)
[2018-01-23] MEDS: CEFEPIME 1,000 MG in DEXTROSE 5% WATER 50 ML IV SCH ×3 (05:51→21:01)
[2018-01-23] MEDS: DILTIAZEM HCL 30MG TABLET PO SCH ×3 (05:52→21:02)
[2018-01-23] MEDS: HYDRALAZINE HCL 25MG TABLET PO SCH ×3 (05:52→21:02)
[2018-01-23 06:01] LABS: HEMATOCRIT. 26.1 % (42.0-52.0); HEMOGLOBIN. 8.6 g/dL (14.0-18.0); MEAN CORPUSCULAR HEMOGLOBIN 30.5 pg (28.0-32.0); MEAN CORPUSCULAR VOLUME 92.7 fL (80.0-94.0); MEAN PLATELET VOLUME 9.2 fl (7.4-10.4); PLATELET 614 x1000/uL (130-400); RED BLOOD CELL COUNT 2.81 mill/uL (4.7-6.1); RED CELL DISTRIBUTION WIDTH 16.7 % (11.6-14.6)
[2018-01-23 06:13] LABS: CHLORIDE 107 mEq/L (98-107)
[2018-01-23 07:29] LABS: PLATELET ESTIMATE INCREASED
[2018-01-23 08:09] LABS: BG BASE EXCESS -1.5 mmol/L (-2.0-2.0); BG CARBOXYHEMOGLOBIN 0.3 % (0.5-1.5); BG DEOXYHEMOGLOBIN 12.8 % (0.0-5.0); BG FRACTION INSPIRED OXYGEN 40; BG HCO3 ACT 21.5 mmol/L (22.0-26.0); BG METHEMOGLOBIN 0.4 % (0.0-1.5); BG OXYGEN SATURATION 87.1 % (92.0-98.5); BG OXYHEMOGLOBIN 86.5 % (94.0-97.0); BG PCO2 29.9 mmHg (35.0-45.0); BG PH 7.474 (7.350-7.450); BG PO2 51.2 mmHg (75.0-100.0); BG PRESSURE SUPPORT 12; BG SAMPLE SITE RIGHT RADIAL; BG TIDAL VOLUME(mL) 450 mL; BG TOTAL HEMOGLOBIN 9.6 g/dL (12.0-18.0); BG VENT MODE VENT - SIMV; BG VENT RATE 8 set
[2018-01-23] MEDS: FERROUS SULFATE 300MG/5ML UDC PO SCH ×2 (08:20→14:00)
[2018-01-23] MEDS ORDERED: FUROSEMIDE 20MG/2ML VIAL IVP SCH (08:45)
[2018-01-23] MEDS: PANTOPRAZOLE SODIUM 40 MG/VIAL IV SCH (09:00)
[2018-01-23] MEDS: NEOMY SULF/BACITRAC ZN/POLY OINT 28GM TOP SCH (09:00)
[2018-01-23] MEDS: CARVEDILOL 3.125 MG TABLET GT SCH ×2 (10:35→21:02)
[2018-01-23] MEDS: AMIODARONE HCL 200 MG TABLET PO SCH (10:35)
[2018-01-24] VITALS (25 sets, daily range): BP systolic 109–158; BP diastolic 56–76
[2018-01-24] MEDS: ALBUTEROL (0.083%) 2.5MG/3ML NEB HHN SCH ×4 (00:07→13:34)
[2018-01-24] MEDS: IPRATROPIUM/ALBUTEROL 0.5-3(2.5)MG/3ML NEB HHN SCH ×2 (00:13→20:17)
[2018-01-24] MEDS: CEFEPIME 1,000 MG in DEXTROSE 5% WATER 50 ML IV SCH ×3 (05:01→22:58)
[2018-01-24] MEDS: DILTIAZEM HCL 30MG TABLET PO SCH ×3 (05:02→22:58)
[2018-01-24] MEDS: HYDRALAZINE HCL 25MG TABLET PO SCH ×3 (05:02→22:57)
[2018-01-24 06:36] LABS: HEMATOCRIT. 26.1 % (42.0-52.0); HEMOGLOBIN. 8.6 g/dL (14.0-18.0); MEAN CORPUSCULAR HEMOGLOBIN 30.2 pg (28.0-32.0); MEAN CORPUSCULAR VOLUME 91.3 fL (80.0-94.0); MEAN PLATELET VOLUME 8.9 fl (7.4-10.4); PLATELET 637 x1000/uL (130-400); RED BLOOD CELL COUNT 2.86 mill/uL (4.7-6.1)
[2018-01-24 07:18] LABS: CHLORIDE 106 mEq/L (98-107)
[2018-01-24 07:24] LABS: PHOSPHORUS 2.5 mg/dL (2.5-4.9)
[2018-01-24] MEDS: FERROUS SULFATE 300MG/5ML UDC PO SCH ×4 (08:20→18:30)
[2018-01-24 09:20] LABS: BG BASE EXCESS -2.6 mmol/L (-2.0-2.0); BG CARBOXYHEMOGLOBIN 0.3 % (0.5-1.5); BG DEOXYHEMOGLOBIN 6.3 % (0.0-5.0); BG FRACTION INSPIRED OXYGEN 40; BG HCO3 ACT 20.4 mmol/L (22.0-26.0); BG METHEMOGLOBIN 0.1 % (0.0-1.5); BG OXYGEN SATURATION 93.7 % (92.0-98.5); BG OXYHEMOGLOBIN 93.3 % (94.0-97.0); BG PCO2 29.2 mmHg (35.0-45.0); BG PH 7.463 (7.350-7.450); BG PO2 69.3 mmHg (75.0-100.0); BG PRESSURE SUPPORT 10; BG SAMPLE SITE RIGHT RADIAL; BG TIDAL VOLUME(mL) 450 mL; BG TOTAL HEMOGLOBIN 9.5 g/dL (12.0-18.0); BG VENT MODE VENT - SIMV; BG VENT RATE 6 set
[2018-01-24] MEDS: AMIODARONE HCL 200 MG TABLET PO SCH (09:54)
[2018-01-24] MEDS: PANTOPRAZOLE SODIUM 40 MG/VIAL IV SCH (09:54)
[2018-01-24] MEDS: CARVEDILOL 3.125 MG TABLET GT SCH ×2 (09:54→21:43)
[2018-01-24] MEDS: NEOMY SULF/BACITRAC ZN/POLY OINT 28GM TOP SCH (09:55)
[2018-01-24 13:36] LABS: PLATELET ESTIMATE INCREASED
[2018-01-24 16:51] LABS: BG BASE EXCESS -2.3 mmol/L (-2.0-2.0); BG CARBOXYHEMOGLOBIN 0.2 % (0.5-1.5); BG DEOXYHEMOGLOBIN 3.9 % (0.0-5.0); BG FRACTION INSPIRED OXYGEN 40; BG HCO3 ACT 20.8 mmol/L (22.0-26.0); BG METHEMOGLOBIN 1.6 % (0.0-1.5); BG OXYHEMOGLOBIN 94.3 % (94.0-97.0); BG PCO2 30.2 mmHg (35.0-45.0); BG PH 7.456 (7.350-7.450); BG PO2 88.1 mmHg (75.0-100.0); BG PRESSURE SUPPORT 10; BG SAMPLE SITE RIGHT RADIAL; BG TIDAL VOLUME(mL) 450 mL; BG TOTAL HEMOGLOBIN 10.3 g/dL (12.0-18.0); BG VENT MODE VENT - SIMV; BG VENT RATE 4 set
[2018-01-25] VITALS (26 sets, daily range): BP systolic 104–166; BP diastolic 56–92
[2018-01-25] MEDS: IPRATROPIUM/ALBUTEROL 0.5-3(2.5)MG/3ML NEB HHN SCH ×2 (00:20→04:12)
[2018-01-25 03:47] LABS: CLARITY URINE TURBID (CLEAR); COLOR URINE YELLOW (YELLOW); KETONES URINE NEGATIVE (NEGATIVE); LEUKOCYTE ESTERASE URINE 3+ (NEGATIVE); NITRITE URINE NEGATIVE (NEGATIVE); OCCULT BLOOD URINE TRACE (NEGATIVE); PROTEIN URINE 1+ (NEGATIVE); SPECIFIC GRAVITY URINE 1.013 (1.005-1.030); UROBILINOGEN URINE 0.2 E.U./dL (0.2-1.0)
[2018-01-25] MEDS: CEFEPIME 1,000 MG in DEXTROSE 5% WATER 50 ML IV SCH ×3 (06:01→22:10)
[2018-01-25] MEDS: DILTIAZEM HCL 30MG TABLET PO SCH ×3 (06:01→22:11)
[2018-01-25] MEDS: HYDRALAZINE HCL 25MG TABLET PO SCH ×3 (06:02→23:00)
[2018-01-25 06:33] LABS: HEMATOCRIT. 27.8 % (42.0-52.0); MEAN CORPUSCULAR HEMOGLOBIN 30.1 pg (28.0-32.0); MEAN PLATELET VOLUME 9.8 fl (7.4-10.4); PLATELET 564 x1000/uL (130-400); RED BLOOD CELL COUNT 2.99 mill/uL (4.7-6.1); RED CELL DISTRIBUTION WIDTH 16.9 % (11.6-14.6)
[2018-01-25 06:37] LABS: CHLORIDE 106 mEq/L (98-107)
[2018-01-25 06:51] LABS: PHOSPHORUS 2.4 mg/dL (2.5-4.9)
[2018-01-25] MEDS: ALBUTEROL (0.083%) 2.5MG/3ML NEB HHN SCH ×5 (07:52→23:43)
[2018-01-25 08:01] LABS: BG BASE EXCESS -1.5 mmol/L (-2.0-2.0); BG CARBOXYHEMOGLOBIN 0.3 % (0.5-1.5); BG DEOXYHEMOGLOBIN 3.5 % (0.0-5.0); BG FRACTION INSPIRED OXYGEN 40; BG HCO3 ACT 21.6 mmol/L (22.0-26.0); BG METHEMOGLOBIN 0.3 % (0.0-1.5); BG OXYGEN SATURATION 96.5 % (92.0-98.5); BG OXYHEMOGLOBIN 95.9 % (94.0-97.0); BG PCO2 30.4 mmHg (35.0-45.0); BG PO2 85.8 mmHg (75.0-100.0); BG PRESSURE SUPPORT 10; BG SAMPLE SITE RIGHT RADIAL; BG TIDAL VOLUME(mL) 450 mL; BG TOTAL HEMOGLOBIN 9.5 g/dL (12.0-18.0); BG VENT MODE VENT - SIMV; BG VENT RATE 4 set
[2018-01-25] MEDS: NEOMY SULF/BACITRAC ZN/POLY OINT 28GM TOP SCH (09:00)
[2018-01-25] MEDS: AMIODARONE HCL 200 MG TABLET PO SCH (09:05)
[2018-01-25] MEDS: CARVEDILOL 3.125 MG TABLET GT SCH ×2 (09:05→21:07)
[2018-01-25] MEDS: FERROUS SULFATE 300MG/5ML UDC PO SCH ×3 (09:06→18:25)
[2018-01-25] MEDS: PANTOPRAZOLE SODIUM 40 MG/VIAL IV SCH (09:06)
[2018-01-25] MEDS ORDERED: POTASSIUM PHOS,M-BASIC-D-BASIC 20 MMOL in DEXT 5% WATER 243.3333 ML IV SCH (12:30)
[2018-01-25 15:38] LABS: PLATELET ESTIMATE INCREASED
[2018-01-25 16:06] LABS: BG BASE EXCESS -2.9 mmol/L (-2.0-2.0); BG CARBOXYHEMOGLOBIN 0.3 % (0.5-1.5); BG DEOXYHEMOGLOBIN 3.1 % (0.0-5.0); BG FRACTION INSPIRED OXYGEN 40; BG HCO3 ACT 20.3 mmol/L (22.0-26.0); BG METHEMOGLOBIN 0.4 % (0.0-1.5); BG OXYGEN SATURATION 96.9 % (92.0-98.5); BG OXYHEMOGLOBIN 96.2 % (94.0-97.0); BG PCO2 29.9 mmHg (35.0-45.0); BG PH 7.449 (7.350-7.450); BG PO2 96.1 mmHg (75.0-100.0); BG PRESSURE SUPPORT 8; BG SAMPLE SITE RIGHT RADIAL; BG TOTAL HEMOGLOBIN 10.6 g/dL (12.0-18.0); BG VENT MODE VENT - CPAP
[2018-01-25] MEDS ORDERED: RACEPINEPHRINE 2.25% 0.5ML NEB VIAL HHN NR (17:15)
[2018-01-25] MEDS ORDERED: IPRATROPIUM/ALBUTEROL 0.5-3(2.5)MG/3ML NEB HHN PRN (17:15)
[2018-01-25 19:21] LABS: BG BASE EXCESS -2.8 mmol/L (-2.0-2.0); BG CARBOXYHEMOGLOBIN 0.3 % (0.5-1.5); BG DEOXYHEMOGLOBIN 11.9 % (0.0-5.0); BG FRACTION INSPIRED OXYGEN 40; BG HCO3 ACT 20.9 mmol/L (22.0-26.0); BG METHEMOGLOBIN 0.6 % (0.0-1.5); BG OXYHEMOGLOBIN 87.2 % (94.0-97.0); BG PH 7.432 (7.350-7.450); BG PO2 54.9 mmHg (75.0-100.0); BG SAMPLE SITE RIGHT RADIAL; BG TOTAL HEMOGLOBIN 9.9 g/dL (12.0-18.0); BG VENT MODE MASK - AEROSOL
[2018-01-25] MEDS ORDERED: IPRATROPIUM/ALBUTEROL 0.5-3(2.5)MG/3ML NEB HHN SCH (20:00)
[2018-01-25 22:39] LABS: BG BASE EXCESS -2.7 mmol/L (-2.0-2.0); BG CARBOXYHEMOGLOBIN 0.3 % (0.5-1.5); BG FRACTION INSPIRED OXYGEN 60; BG HCO3 ACT 20.9 mmol/L (22.0-26.0); BG METHEMOGLOBIN 0.3 % (0.0-1.5); BG OXYHEMOGLOBIN 95.4 % (94.0-97.0); BG PCO2 32.1 mmHg (35.0-45.0); BG PH 7.431 (7.350-7.450); BG PO2 83.3 mmHg (75.0-100.0); BG SAMPLE SITE RIGHT RADIAL; BG TOTAL HEMOGLOBIN 10.9 g/dL (12.0-18.0); BG VENT MODE MASK - AEROSOL
[2018-01-26] VITALS (23 sets, daily range): BP systolic 91–158; BP diastolic 55–86
[2018-01-26] MEDS: ALBUTEROL (0.083%) 2.5MG/3ML NEB HHN SCH ×3 (04:23→17:37)
[2018-01-26] MEDS: CEFEPIME 1,000 MG in DEXTROSE 5% WATER 50 ML IV SCH ×3 (05:27→21:48)
[2018-01-26] MEDS: DILTIAZEM HCL 30MG TABLET PO SCH (05:28)
[2018-01-26] MEDS: HYDRALAZINE HCL 25MG TABLET PO SCH ×3 (06:00→21:48)
[2018-01-26 08:43] LABS: BG BASE EXCESS -1.3 mmol/L (-2.0-2.0); BG CARBOXYHEMOGLOBIN 0.3 % (0.5-1.5); BG DEOXYHEMOGLOBIN 10.3 % (0.0-5.0); BG FRACTION INSPIRED OXYGEN 60; BG HCO3 ACT 21.7 mmol/L (22.0-26.0); BG METHEMOGLOBIN 0.3 % (0.0-1.5); BG OXYGEN SATURATION 89.6 % (92.0-98.5); BG OXYHEMOGLOBIN 89.1 % (94.0-97.0); BG PCO2 30.4 mmHg (35.0-45.0); BG PH 7.472 (7.350-7.450); BG PO2 56.5 mmHg (75.0-100.0); BG SAMPLE SITE LEFT RADIAL; BG TOTAL HEMOGLOBIN 9.7 g/dL (12.0-18.0); BG VENT MODE MASK - AEROSOL
[2018-01-26] MEDS: IPRATROPIUM/ALBUTEROL 0.5-3(2.5)MG/3ML NEB HHN SCH ×4 (08:50→19:30)
[2018-01-26] MEDS: CARVEDILOL 3.125 MG TABLET GT SCH (08:55)
[2018-01-26] MEDS: FERROUS SULFATE 300MG/5ML UDC PO SCH ×3 (08:55→18:13)
[2018-01-26] MEDS: NEOMY SULF/BACITRAC ZN/POLY OINT 28GM TOP SCH (08:56)
[2018-01-26] MEDS: PANTOPRAZOLE SODIUM 40 MG/VIAL IV SCH (08:56)
[2018-01-26] MEDS: ACETYLCYSTEINE 100MG/ML 10% VIAL 4ML INH SCH ×2 (11:29→17:37)
[2018-01-27] VITALS (28 sets, daily range): BP systolic 129–185; BP diastolic 71–86
[2018-01-27] MEDS: ALBUTEROL (0.083%) 2.5MG/3ML NEB HHN SCH ×2 (00:13→08:53)
[2018-01-27] MEDS: ACETYLCYSTEINE 100MG/ML 10% VIAL 4ML INH SCH ×3 (00:15→15:34)
[2018-01-27] MEDS: HYDRALAZINE HCL 25MG TABLET PO SCH ×3 (06:06→22:02)
[2018-01-27] MEDS: CEFEPIME 1,000 MG in DEXTROSE 5% WATER 50 ML IV SCH ×3 (06:06→22:02)
[2018-01-27 06:52] LABS: CHLORIDE 107 mEq/L (98-107)
[2018-01-27 07:03] LABS: PHOSPHORUS 2.5 mg/dL (2.5-4.9)
[2018-01-27 07:04] LABS: HEMATOCRIT. 28.3 % (42.0-52.0); MEAN CORPUSCULAR HEMOGLOBIN 29.9 pg (28.0-32.0); MEAN CORPUSCULAR VOLUME 93.8 fL (80.0-94.0); MEAN PLATELET VOLUME 9.4 fl (7.4-10.4); PLATELET 526 x1000/uL (130-400); RED BLOOD CELL COUNT 3.02 mill/uL (4.7-6.1); RED CELL DISTRIBUTION WIDTH 17.1 % (11.6-14.6)
[2018-01-27 08:02] LABS: BG BASE EXCESS -1.3 mmol/L (-2.0-2.0); BG CARBOXYHEMOGLOBIN 0.3 % (0.5-1.5); BG DEOXYHEMOGLOBIN 8.3 % (0.0-5.0); BG FRACTION INSPIRED OXYGEN 60; BG HCO3 ACT 22.1 mmol/L (22.0-26.0); BG METHEMOGLOBIN 0.2 % (0.0-1.5); BG OXYGEN SATURATION 91.7 % (92.0-98.5); BG OXYHEMOGLOBIN 91.2 % (94.0-97.0); BG PCO2 32.2 mmHg (35.0-45.0); BG PH 7.454 (7.350-7.450); BG PO2 62.1 mmHg (75.0-100.0); BG SAMPLE SITE LEFT RADIAL; BG TOTAL HEMOGLOBIN 9.9 g/dL (12.0-18.0); BG VENT MODE MASK - AEROSOL
[2018-01-27] MEDS: NEOMY SULF/BACITRAC ZN/POLY OINT 28GM TOP SCH (08:25)
[2018-01-27] MEDS: PANTOPRAZOLE SODIUM 40 MG/VIAL IV SCH (08:25)
[2018-01-27] MEDS: FERROUS SULFATE 300MG/5ML UDC PO SCH ×3 (08:25→18:24)
[2018-01-27] MEDS ORDERED: AMLODIPINE 5MG TABLET GT SCH (09:15)
[2018-01-27] MEDS ORDERED: FUROSEMIDE 40MG/4ML VIAL IVP SCH (09:15)
[2018-01-27] MEDS: FUROSEMIDE 20MG/2ML VIAL IVP SCH (10:16)
[2018-01-27] MEDS: IPRATROPIUM/ALBUTEROL 0.5-3(2.5)MG/3ML NEB HHN SCH ×3 (11:18→20:07)
[2018-01-27 11:27] LABS: PLATELET ESTIMATE MARKEDLY INCREASED
[2018-01-27] MEDS: AMLODIPINE 5MG TABLET GT SCH ×2 (18:25→20:46)
[2018-01-28] VITALS (28 sets, daily range): BP systolic 101–146; BP diastolic 58–95
[2018-01-28] MEDS: IPRATROPIUM/ALBUTEROL 0.5-3(2.5)MG/3ML NEB HHN SCH ×6 (00:10→21:19)
[2018-01-28] MEDS: ACETAMINOPHEN 650MG/20.3ML UDC PO PRN (00:23)
[2018-01-28] MEDS: CARVEDILOL 3.125 MG TABLET PEG SCH ×2 (00:23→08:31)
[2018-01-28] MEDS: HYDRALAZINE HCL 25MG TABLET PO SCH ×3 (05:45→21:16)
[2018-01-28 07:00] LABS: HEMATOCRIT. 25.2 % (42.0-52.0); HEMOGLOBIN. 8.5 g/dL (14.0-18.0); MEAN CORPUSCULAR HEMOGLOBIN 30.8 pg (28.0-32.0); MEAN CORPUSCULAR VOLUME 91.4 fL (80.0-94.0); MEAN PLATELET VOLUME 9.1 fl (7.4-10.4); PLATELET 533 x1000/uL (130-400); RED BLOOD CELL COUNT 2.75 mill/uL (4.7-6.1)
[2018-01-28 07:19] LABS: BG CARBOXYHEMOGLOBIN 0.3 % (0.5-1.5); BG DEOXYHEMOGLOBIN 5.3 % (0.0-5.0); BG METHEMOGLOBIN 0.3 % (0.0-1.5); BG OXYGEN SATURATION 94.7 % (92.0-98.5); BG OXYHEMOGLOBIN 94.1 % (94.0-97.0); BG PCO2 30.9 mmHg (35.0-45.0); BG PH 7.489 (7.350-7.450); BG PO2 70.5 mmHg (75.0-100.0); BG SAMPLE SITE RIGHT RADIAL; BG VENT MODE MASK - AEROSOL
[2018-01-28 07:19] LABS: CHLORIDE 104 mEq/L (98-107)
[2018-01-28 07:35] LABS: PHOSPHORUS 2.4 mg/dL (2.5-4.9)
[2018-01-28] MEDS: ACETYLCYSTEINE 100MG/ML 10% VIAL 4ML INH SCH ×2 (07:35→15:30)
[2018-01-28] MEDS: NEOMY SULF/BACITRAC ZN/POLY OINT 28GM TOP SCH (08:26)
[2018-01-28] MEDS: PANTOPRAZOLE SODIUM 40 MG/VIAL IV SCH (08:30)
[2018-01-28] MEDS: FERROUS SULFATE 300MG/5ML UDC PO SCH ×3 (08:30→17:15)
[2018-01-28] MEDS: AMLODIPINE 5MG TABLET GT SCH ×2 (08:30→21:16)
[2018-01-28] MEDS: FUROSEMIDE 20MG/2ML VIAL IVP SCH (08:30)
[2018-01-28 08:54] LABS: PLATELET ESTIMATE INCREASED
[2018-01-28] MEDS ORDERED: SODIUM PHOS,M-BASIC-D-BASIC 15 MM in DEXT 5% WATER 245 ML IV NR (09:30)
[2018-01-28] MEDS ORDERED: LIDOCAINE HCL 1% 20ML VIAL (Pyxis) INJ ONE (10:17)
[2018-01-28] MEDS: FLUCONAZOLE 200 MG/100ML BAG 100 ML IV SCH (12:30)
[2018-01-28] MEDS: CARVEDILOL 6.25 MG TABLET PEG SCH (21:16)
[2018-01-29] VITALS (11 sets, daily range): BP systolic 117–164; BP diastolic 59–72
[2018-01-29] MEDS: ACETYLCYSTEINE 100MG/ML 10% VIAL 4ML INH SCH ×3 (01:14→16:47)
[2018-01-29] MEDS: IPRATROPIUM/ALBUTEROL 0.5-3(2.5)MG/3ML NEB HHN SCH ×5 (01:15→16:47)
[2018-01-29] MEDS: HYDRALAZINE HCL 25MG TABLET PO SCH ×2 (06:01→13:03)
[2018-01-29 06:15] LABS: BASOPHILS % 0.7 % (0.0-2.0); EOSINOPHILS % 2.1 % (0.0-5.0); HEMOGLOBIN. 8.5 g/dL (14.0-18.0); LYMPHOCYTES % 7.3 % (20.0-50.0); MEAN CORPUSCULAR HEMOGLOBIN 31.2 pg (28.0-32.0); MEAN CORPUSCULAR VOLUME 91.9 fL (80.0-94.0); MONOCYTES % 8.2 % (2.0-8.0); NEUTROPHILS % 81.7 % (40.0-76.0); PLATELET 486 x1000/uL (130-400); RED BLOOD CELL COUNT 2.72 mill/uL (4.7-6.1); RED CELL DISTRIBUTION WIDTH 17.2 % (11.6-14.6)
[2018-01-29 06:27] LABS: CHLORIDE 102 mEq/L (98-107)
[2018-01-29 06:34] LABS: PHOSPHORUS 2.4 mg/dL (2.5-4.9)
[2018-01-29 08:10] LABS: BG BASE EXCESS 3.1 mmol/L (-2.0-2.0); BG CARBOXYHEMOGLOBIN 0.3 % (0.5-1.5); BG DEOXYHEMOGLOBIN 8.2 % (0.0-5.0); BG FRACTION INSPIRED OXYGEN 32; BG HCO3 ACT 26.2 mmol/L (22.0-26.0); BG METHEMOGLOBIN 0.3 % (0.0-1.5); BG OXYGEN SATURATION 91.8 % (92.0-98.5); BG OXYHEMOGLOBIN 91.2 % (94.0-97.0); BG PCO2 34.2 mmHg (35.0-45.0); BG PH 7.502 (7.350-7.450); BG PO2 63.4 mmHg (75.0-100.0); BG SAMPLE SITE RIGHT RADIAL; BG TOTAL HEMOGLOBIN 10.2 g/dL (12.0-18.0); BG VENT MODE NASAL CANNULA
[2018-01-29] MEDS: FERROUS SULFATE 300MG/5ML UDC PO SCH ×3 (08:27→17:40)
[2018-01-29] MEDS: PANTOPRAZOLE SODIUM 40 MG/VIAL IV SCH (08:27)
[2018-01-29] MEDS: AMLODIPINE 5MG TABLET GT SCH (08:28)
[2018-01-29] MEDS: FUROSEMIDE 20MG/2ML VIAL IVP SCH (08:28)
[2018-01-29] MEDS: CARVEDILOL 6.25 MG TABLET PEG SCH (08:28)
[2018-01-29] MEDS ORDERED: POTASSIUM PHOS,M-BASIC-D-BASIC 15 MMOL in DEXT 5% WATER 245 ML IV NR (10:00)
[2018-01-29] MEDS: NEOMY SULF/BACITRAC ZN/POLY OINT 28GM TOP SCH (11:17)
[2018-01-29] MEDS: FLUCONAZOLE 200 MG/100ML BAG 100 ML IV SCH (13:06)
[2018-01-29 16:43] LABS: INR 1.4; PROTHROMBIN TIME 13.6 sec (9.1-11.1)
== END 2018-01-29 19:05 | DRG 853 ==
LOC: ER 00:51 → CVICU 05:26 → EDBEDREQ 05:34 → EDBEDREQSVC 07:00 → EDBEDREQ 07:01 → EDBEDREQSVC 07:01 → ENRESERV 07:34 → 5EST 01-28 16:52
PROVIDERS: ADMIT Internal Medicine; ATTEND Internal Medicine
PROC: 0BH18EZ Insertion of Endotracheal Airway into Trachea, Via Natural or Artificial Opening Endoscopic (ICD-10-PCS; 2018-01-09)
PROC: 5A1955Z Respiratory Ventilation, Greater than 96 Consecutive Hours (ICD-10-PCS; principal; 2018-01-15)
PROC: 0JBL0ZZ Excision of Right Upper Leg Subcutaneous Tissue and Fascia, Open Approach (ICD-10-PCS; 2018-01-15)
DX: A41.9 Sepsis, unspecified organism (principal); J96.01 Acute respiratory failure with hypoxia; E43 Unspecified severe protein-calorie malnutrition; I21.4 Non-ST elevation (NSTEMI) myocardial infarction; J18.9 Pneumonia, unspecified organism; G93.40 Encephalopathy, unspecified; E87.2 Acidosis; N17.9 Acute kidney failure, unspecified; I50.22 Chronic systolic (congestive) heart failure; R65.20 Severe sepsis without septic shock; D64.9 Anemia, unspecified
CPT/HCPCS: 31500; 32555; 36415; 36569; 36600; 51702; 70450; 71045; 76604; 76937; 80048; 80053; 80170; 80202; 81003; 82270; 82375; 82805; 82945; 82962; 83540; 83550; 83605; 83615; 83735; 83935; 84100; 84134; 84157; 84478; 84484; 85014; 85018; 85025; 85027; 85044; 85610; 85730; 86850; 86900; 86920; 87040; 87070; 87077; 87086; 87102; 87106; 87116; 87186; 87205; 88108; 88312; 89050; 93005; 93306; 93923; 93970; 94002; 94003; 94640; 94660; 94667; 96365; 96368; 97162; 97164; 99291; A4216; A6261; C1725; C9113; J0282; J0330; J0692; J1200; J1450; J1580; J1940; J2060; J2270; J2543; J2704; J3010; J3370; J3490; J7030; J7040; J7042; J7050; J7060; J7070; J7608; J7611; J7620; P9016